=== PATIENT | female | born 1940 | race Two or more races ===

== ENCOUNTER 2016-10-19 06:10 | Observation (INO) | payer MEDICARE, OTHER ==
--- NOTE | ~2016-10-19 | HP ---
Unit #: [id number] #: [id number] Patient: MCKENZIE FAIR [id number] [address] [place], [place] [address] [id number] I MR#: [id number] NAME: MCKENZIE FAIR ROOM: 226 Age: 76 Sex: F Admission Date: 10/19/2016 : 1940 Attending Physician: Kole Mederos M.D. Primary Care Physician: Zeke Nelson M.D. HISTORY AND PHYSICAL CHIEF COMPLAINT Hypoglycemia. HISTORY OF PRESENT ILLNESS This is a 76-year-old Laotian female who basically has been admitted in the past for hypoglycemia again presents after family noted that she was acting kind of weird and she was subsequently brought to the hospital. She was noted to be behaving very different at about 3 a.m. in the morning. She has been in the hospital and workup so far in the hospital really was essentially within normal limits except for her hypoglycemia which she has been here for before and some mild renal insufficiency. Other than that, the patient was scheduled to be discharged when she again had another episode where she had another altered mental status and blood sugar was down to 36 per ER doctor. Hence, the decision was made to admit patient. Speaking with family, family members state that they gave her her insulin and insulin has been managed by Dr. Nelson. PAST MEDICAL HISTORY 1. Diabetes mellitus type 2, insulin dependent managed by Dr. Nelson. 2. Thyroid nodules. 3. Macrocytic anemia. 4. Peripheral neuropathy. HOME MEDICATIONS Include: 1. Hydroxyzine 25 mg p.o. q.i.d. 2. Aspirin 81 mg p.o. daily. 3. Lisinopril 5 mg p.o. daily. 4. Simvastatin 20 mg p.o. q.p.m. 5. Metformin 500 mg p.o. b.i.d. 6. Diclofenac 15 mg p.o. b.i.d. 7. Gabapentin 300 mg p.o. as directed. 8. Naproxen 220 mg p.o. as needed. ALLERGIES No known drug allergies. SOCIAL HISTORY Live with daughter and son. Her daughter is Renetta, who is next of kin. She chews tobacco. Denies alcohol use. FAMILY HISTORY Unit #: [id number] #: [id number] Patient: MCKENZIE FAIR History of diabetes. REVIEW OF SYSTEMS She denies any chest pain, headaches, difficulty breathing. States she is somewhat weak in her knees sometimes when she walks, she has been having pain in her knees as well. She does have an appointment to see Orthopedics on 10/22/2016. PHYSICAL EXAMINATION VITAL SIGNS: Blood pressure 141/66, pulse 70, respiratory rate 18, temperature 98.8. GENERAL: She was comfortable, not in distress. EYES: Pupils were equal and reactive to light and accommodation. NECK: Supple without thyromegaly. No elevated JVD. LUNGS: Breath sounds along the bases posteriorly. HEART: First and second heart sounds only. ABDOMEN: Soft. No palpable organomegaly. NEUROLOGIC: Cranial nerves II-XII are grossly intact. SKIN: Warm and dry with no rashes. LYMPHATICS: No enlarged peripheral lymphadenopathy that I could appreciate. DIAGNOSTIC STUDIES LABORATORY: Chemistries glucose 148, BUN 10, creatinine 0.9, sodium 139, potassium 4.0, chloride 105, bicarbonate 25. CBC with WBC 11.1, hemoglobin 10.2, hematocrit 33.1, platelet count 148. Urinalysis trace leukocyte esterase, glucose 250. ASSESSMENT AND PLAN 1. Hypoglycemia. I will stop metformin and discontinue Levemir at this time and put patient only on sliding scale insulin. Give patient D5 half normal saline 100 mL per hour. Check a CBC and BMP in the morning. Consult with Dr. Russell. 2. Diabetes mellitus type 2. 3. Hypertension. 4. Osteoarthritis of her knees. She has a scheduled follow up as an outpatient with Orthopedics and will defer to address this at this time with them. 5. DVT prophylaxis. Put her on Lovenox 40 mg subcu daily. 6. GI prophylaxis. Put her on Protonix 40 mg p.o. daily. 7. Anticipate discharge in the next one to two days. Dictated by Remedios Rosas TD: 10/19/2016 19:06 JOB #: [id number] Unit #: [id number] #: [id number] Patient: MCKENZIE FAIR HISTORY AND PHYSICAL Page 1 of 1 X Kole Mederos MD HISTORY AND PHYSICAL
--- NOTE | ~2016-10-19 | A ---
[facility] Nutrition Therapy DATE: 10/20/16 Patient: MCKENZIE OLIVASGRZEGORZJIN Physician: TERRENCE Address: [address] [place] [address] Room/Bed: [address] [place] [address], Zip: [place] [address] Admit Date: 10/19/16 Date of : 40 Height: Weight: 125 56.7 NUTRITIONAL ASSESSMENT: REASON: CONSULT RE: DIET EDUCATION HT: 5'0", WT: 120# (55 KG), BMI: 23.4 RD PROVIDED WRITTEN AND VERBAL CC DIET EDUCATION. FAMILY IN ROOM SERVED PAINTER AND GRADER CORK, DENIED NEEDING PAINTER AND GRADER CORK PHONE. RD SPOKE ON IMPORTANCE OF MAINTAINING A CONSISTENT MEAL PATTERN AND WATCH PORTIONS OF SPECFIC FOODS (STARCHES). SON OF PT STATES PT EATS A LOT OF RICE. RD ENCOURAGED PT TO CUT BACK ON RICE INTAKE AND PROVIDED EXAMPLES OF ALTERNATIVES. PT SHOWED MODERATE UNDERSTANDING OF DIET, MODERATE MOTIVATION TO MAKE NECESSARY CHANGES. PT AND FAMILY REPORTED NO DIET QUESTIONS AT THIS TIME. RD TO REMAIN AVAILABLE. RECOMMENDATIONS: 1. ENCOURAGE COMPLIANCE OF CURRENT DIET ORDER-CC RD WILL F/U PER PROTOCOL Respectfully, DARCY GOMEZ MS, RD, LD Food and Nutritional Services [facility] cc: client file
--- NOTE | ~2016-10-19 | CR72 ---
[facility] A Service of [facility] RADIOLOGY TEXT RESULTS PATIENT: MCKENZIE FAIR LOCATION: [facility] : 40 UNIT #: [id number] AGE: [address]: Harpreet Olvera MD SEX: F ORDER DR: [id number] [facility] [address] [facility]. [place], [place] [address] [id number] I MR#: [id number] Acc #: [id number] NAME: MCKENZIE FAIR : 1940 SEX: F STUDY DATE/TIME: UNIT: [facility] ROOM: [facility] STUDY DESCRIPTION: CR Chest Single View Portable Attending Physician: Harpreet Olvera M.D. Ordering Physician: Lake Castano M.D. Primary Care Physician: Primary Care Physician No MEDICAL IMAGING REPORT This report is preliminary unless electronic signature is present EXAM Portable chest 01/24/2017 09:30 hours HISTORY Chest pain with midsternal pain. Throat pain today. History of diabetes and hypertension. COMPARISON 10/19/2016 FINDINGS Portable upright chest demonstrates low lung volumes. Heart size is within normal limits. There is mild atherosclerotic change of the aorta without change in contour. The lungs are clear and there are no effusions. IMPRESSION Low lung volumes with no acute cardiopulmonary findings. No change from 10/19/2016. Dictated by... Gemini Rucker M.D. THIS IS AN ELECTRONICALLY VERIFIED REPORT Gemini Rucker M.D. at 01/25/2017 9:29 AM SMM/oralia TD: 01/24/2017 15:03 JOB #: [id number] MEDICAL IMAGING REPORT Page 1 of 1 COPY
--- NOTE | ~2016-10-19 | EKG ---
PATIENT: MCKENZIE FAIR UNIT #: [id number] Ventricular Rate: 73 BPM Atrial Rate: 73 BPM P-R Interval: 136 ms QRS Duration: 78 ms Q-T Interval: 412 ms QTC Calculation(Bezet): 453 ms P [place]: 66 degrees Calculated R [place]: 38 degrees Calculated T [place]: 40 degrees Diagnosis Line: Normal sinus rhythm Diagnosis Line: Normal ECG Diagnosis Line: When compared with ECG of 19-OCT-2016 05:43, Diagnosis Line: (unconfirmed) Diagnosis Line: No significant change was found Diagnosis Line: Confirmed by AMARJIT ROMERO MD ([id number]) on 10/19/2016 Diagnosis Line: 11:30:01 PM INTERPRETING MD: NICK SALGADO
--- NOTE | ~2016-10-19 | DS ---
Unit #: [id number] #: [id number] Patient: MCKENZIE FAIR [id number] [address] [place], [place] [address] [id number] I MR#: [id number] NAME: MCKENZIE FAIR ROOM: 226 Age: 76 Sex: F Admission Date: 10/19/2016 : 1940 Discharge Date: 10/20/2016 Attending Physician: Harpreet Olvera M.D. Primary Care Physician: No Primary Care Physician DISCHARGE SUMMARY DISCHARGE DIAGNOSES 1. Hypoglycemia secondary to Metformin and Levemir usage. 2. Type 2 diabetes. 3. Essential hypertension. 4. Dyslipidemia. EYEGLASS FRAME TRUER Dr. Russell of Endocrinology. DIAGNOSTIC STUDIES: IMAGING: Consists of a chest x-ray on 10/19/16. Impression-no active disease. LABORATORY: On the day of discharge, the patient's labs are a BMP: Glucose 142, BUN 13, creatinine 1.1, sodium 139, potassium 4.1, chloride 107, CO2 25, calcium 8.8, total protein 4.6, albumin 3.6, total bilirubin 0.4, AST 29, ALT 27, alkaline phosphatase 56. Lipase 30. When assessed, TSH was 0.79, free T4 0.98. CBC with WBC of 7.2, RBC 4.62, hemoglobin 10.1, hematocrit 32.7, MCV 70.9, MCH 21.9, MCHC 30.9, RDW 15.3, platelets 148, MPV 10.8. HOSPITAL COURSE The patient is a pleasant, 76-year-old, (1) speaking only female with past medical history of type 2 diabetes who was hospitalized back in December of 2014 with iatrogenic hypoglycemia. She does also have history of dyslipidemia, iron deficiency anemia, gastric ulcer disease, who was brought to the emergency department by her pkmgmced-qh-etp who lives with the patient for symptoms of palpitations, sweating and "acting funny". The patient's fspsoeqp-fu-hrv says that when assessed, reading was low. The patient's seivpyph-pe-zsj that this had happened one week ago as well. The patient gets Metformin at home, extended release 500 mg orally twice daily, as well as Levemir 20 units subcutaneous at bedtime. She had been getting this regimen for as long as the patient's byvqktxx-mr-foo had been living here which is for about a couple of months now. In the emergency department, her Accu-Chek was 30. She was treated with D5 and admitted for further evaluation. She was seen in consultation with Dr. Russell who thought that maybe the Metformin was causing her to be hypoglycemic. At this time, I am recommending that patient may be discharged home with her wjfmxuxn-lb-ijh, as she lives with her razbvgqj-is-zka and she does not work out of the home. I recommend that she stop the Metformin, reducing her Levemir to 10 units subcutaneously at bedtime. I have instructed her xsltysha-co-nyv to assess with an Accu-Chek prior to the admission of the Levemir. If it is less than 150, then this can be held. Unit #: [id number] #: [id number] Patient: MCKENZIE FAIR DISCHARGE CONDITION Stable. FOLLOWUP She is to follow up with primary care physician within one to two weeks. The patient had been complaining of ongoing right knee pain, which her trsmmieq-ea-vul has an outpatient orthopaedic followup appointment for her in two days on October. DISCHARGE DIET Heart Healthy with [employer] consistent carb recollections. ACTIVITIES No restrictions. The patient can resume activities as was prior to hospitalization with ambulating every day. MEDICINES 1. Gabapentin 100 mg every morning and 200 mg in the evening. 2. Simvastatin 20 mg every evening. 3. Lisinopril 5 mg orally daily. 4. Iron supplement 325 mg orally twice daily. 5. Aspirin 81 mg orally daily. 6. Diclofenac 50 mg orally twice daily. 7. Aleve 220 mg orally daily. 8. Hold the Metformin. 9. I have instructed the patient's zqdjfhvz-kh-wok to reduce the Levemir to 10 units subcutaneously at bedtime and hold if the blood sugar is less than 150. Dictated by... Krystina Thomas PA-C for Harpreet Olvera M.D. DAISY/li TD: 10/21/2016 07:20 JOB #: [id number] DISCHARGE SUMMARY Page 1 of 1 X X DISCHARGE SUMMARY
[~2016-10-19 06:10] MED LIST: ASPIRIN81 M2 PO; DICLOFENAC SODI50 MG PO; FERROUS GLUCON324 MG PO; GABAPENTIN300 MG PO; GLUCOPHAGE500 MG PO; LEVEMIR FL100 UNIT/1 SUBQ; LEVEMIR100 UNITS/ SUBQ; NO MEDICATIONS; PROTONIX PO; TYLENOL325 M1 PO; ZESTRIL2.5 M1 PO; ZOCOR20 MG PO
[2016-10-19 06:40] LABS: URINE SOURCE CLEAN CATCH
[2016-10-19 06:46] LABS: URINE APPEARANCE CLEAR; URINE BILIRUBIN NEG (NEG); URINE BLOOD NEG (NEG); URINE COLOR YELLOW; URINE GLUCOSE 250 MG/DL (NEG); URINE KETONE NEG (NEG); URINE LEUKOCYTE ESTERASE TRACE (NEG); URINE NITRATE NEG (NEG); URINE PH 5.5 (5-8); URINE PROTEIN NEG (NEG); URINE UROBILINOGEN 0.2 MG/DL (NEG)
[2016-10-19 06:46] LABS: BASOPHIL# 0.1 X10e3 (0-0.3); BASOPHIL% 0.7 % (0-2.5); EOSINOPHIL# 0.1 X10e3 (0-0.7); EOSINOPHIL% 0.7 % (0.0-7.0); HEMATOCRIT 33.1 % (35.0-45.0); HEMOGLOBIN 10.2 gm/dL (12.0-16.0); LYMPHOCYTE# 1.7 X10e3 (1.0-3.5); LYMPHOCYTE% 14.9 % (17.0-45.0); MEAN CELL VOLUME 70.8 FL (83-96); MEAN CORPUSCULAR HEMOGLOBIN 21.8 PG (28-34); MEAN CORPUSCULAR HGB CONC 30.8 g/dL (30-36); MONOCYTE# 0.8 X10e3 (0-1.0); NEUTROPHIL# 8.5 X10e3 (1.5-7.1); NEUTROPHIL% 76.7 % (40-75); PLATELET COUNT 148 X10e3 (140-420); RED BLOOD COUNT 4.68 X10e (3.90-5.30); RED CELL DISTRIBUTION WIDTH 15.5 % (11.0-15.5); WHITE BLOOD COUNT 11.1 X10e3 (4.0-10.5)
[2016-10-19 06:49] LABS: URBCS1 AUWI 0-2 /[HPF] (0-2); URINE BACTERIA AUWI NEG (NEGATIVE); URINE SQUAMOUS EPITHELIAL CELL OCC /[HPF]
[2016-10-19 06:51] LABS: CULTURE INDICATED? NO
[2016-10-19 06:53] LABS: DIFF IND NO
[2016-10-19 07:27] LABS: ALBUMIN SERUM 3.6 g/dL (3.5-5.0); ALKALINE PHOSPHATASE 56 U/L (32-92); ALT (SGPT) 27 U/L (10-40); AST (SGOT) 29 U/L (10-42); BILIRUBIN,TOTAL 0.4 mg/dL (0.2-2.0); BLOOD UREA NITROGEN 10 mg/dL (9-23); BUN/CREATININE RATIO 11.11; CALCIUM SERUM 8.9 mg/dL (8.4-10.2); CARBON DIOXIDE 25 mmol/L (22-31); CHLORIDE 105 mmol/L (100-111); CREATININE SERUM 0.9 mg/dL (0.6-1.4); GLOM FILT RATE Estimated 62.2 mL/min (>60); GLUCOSE FASTING 148 mg/dL (70-110); PROTEIN TOTAL SERUM 7.6 g/dL (6.0-8.3); SODIUM 139 mmol/L (135-145)
[2016-10-19 07:28] LABS: BILIRUBIN, DIRECT <0.1 mg/dL (0.0-0.2); BILIRUBIN,INDIRECT 0.3 mg/dL (0.0-0.9)
[2016-10-19] MEDS ORDERED: ASPIRIN EC81 M1 PO (12:20)
[2016-10-19] MEDS ORDERED: LISINOPRIL5 MG PO (12:20)
[2016-10-19] MEDS ORDERED: HYDROXYZINE HCL25 M1 PO (12:20)
[2016-10-19] MEDS ORDERED: SIMVASTATIN20 MG PO (12:21)
[2016-10-19] MEDS ORDERED: METFORMIN HCL500 M3 PO (12:22)
[2016-10-19] MEDS ORDERED: VOLTAREN50 MG PO (12:27)
[2016-10-19] MEDS ORDERED: HEMOCYTE324 MG PO (12:29)
[2016-10-19] MEDS ORDERED: GABAPENTIN300 MG PO (12:29)
[2016-10-19] MEDS ORDERED: ALEVE220 M1 PO (12:30)
[2016-10-20 06:43] LABS: HEMATOCRIT 32.7 % (35.0-45.0); HEMOGLOBIN 10.1 gm/dL (12.0-16.0); MEAN CELL VOLUME 70.9 FL (83-96); MEAN CORPUSCULAR HEMOGLOBIN 21.9 PG (28-34); MEAN CORPUSCULAR HGB CONC 30.9 g/dL (30-36); MEAN PLATELET VOLUME 10.8 FL (6.5-11.5); RED BLOOD COUNT 4.62 X10e (3.90-5.30); RED CELL DISTRIBUTION WIDTH 15.3 % (11.0-15.5); WHITE BLOOD COUNT 7.2 X10e3 (4.0-10.5)
[2016-10-20 07:15] LABS: THYROID STIMULATING HORMONE 0.79 uIU/ml (0.34-5.60)
[2016-10-20 07:22] LABS: BUN/CREATININE RATIO 11.81; CALCIUM SERUM 8.8 mg/dL (8.4-10.2); CREATININE SERUM 1.1 mg/dL (0.6-1.4); FREE THYROXIN (T4) 0.98 ng/dL (0.58-1.64); GLOM FILT RATE Estimated 48.7 mL/min (>60); POTASSIUM 4.1 mmol/L (3.5-5.1)
[2016-10-20] MEDS ORDERED: LEVEMIR100 UNITS/ SUBQ (12:57)
== END 2016-10-20 14:01 | disposition home or self-care (01) ==
LOC: CED 06:10 → CEDOF 11:20 → C2A 13:40
PROVIDERS: Emergency Medicine; Family Medicine
DX: E11.649 Type 2 diabetes mellitus with hypoglycemia without coma (principal); T38.3X5A Adverse effect of insulin and oral hypoglycemic [antidiabetic] drugs, initial encounter; Z79.4 Long term (current) use of insulin; Z79.84 Long term (current) use of oral hypoglycemic drugs; I10 Essential (primary) hypertension; E78.5 Hyperlipidemia, unspecified; M17.0 Bilateral primary osteoarthritis of knee; F17.220 Nicotine dependence, chewing tobacco, uncomplicated; Z83.3 Family history of diabetes mellitus; Z79.82 Long term (current) use of aspirin
CPT/HCPCS: 36415; 71010; 80048; 80076; 81003; 82947; 83036; 84439; 84443; 85025; 85027; 93005; 96372; 96374; 99285; G0378; J1650

== ENCOUNTER 2017-01-24 08:41 | Observation (INO) | payer MEDICARE, OTHER ==
--- NOTE | ~2017-01-24 | CT114 ---
[facility] A Service of [facility] RADIOLOGY TEXT RESULTS PATIENT: MCKENZIE FAIR LOCATION: [facility] 315- : 40 UNIT #: [id number] AGE: [address]: Carrillo Giraldo MD SEX: F ORDER DR: [id number] [facility] [address] [facility]. [place], [place] [address] [id number] I MR#: [id number] Acc #: [id number] NAME: MCKENZIE FAIR : 1940 SEX: F STUDY DATE/TIME: 01/24/2017 11:40 UNIT: [address] ROOM: [facility] STUDY DESCRIPTION: CT Soft Tissue Neck W Cont Attending Physician: Carrillo Giraldo M.D. Ordering Physician: Er Physicians Primary Care Physician: No Primary Care Physician MEDICAL IMAGING REPORT This report is preliminary unless electronic signature is present EXAM CT neck soft tissues with contrast INDICATIONS Sore throat for the past 2 years with right-sided neck mass for the past 2 years. PROCEDURE Contrast-enhanced CT of the neck utilizing soft tissue technique. This CT exam was performed with one or more of the following radiation dose reduction techniques: automatic exposure control, adjustment of mA and/or kV according to patient size, and iterative reconstruction. COMPARISON Thyroid ultrasound from 11/01/2014 FINDINGS Thyroid gland is diffusely enlarged, right greater than left. Multinodular appearance of the right thyroid lobe. A dominant nodule on the right measures up to 2.9 cm. A second heterogeneously enhancing nodule in the lower pole of the right lobe measures up to 3.1 cm. There is diffuse heterogeneity of the left lobe, but no discrete nodule seen. The right lobe does have right to left mass effect on the trachea and esophagus. The trachea remains patent. No cervical adenopathy. There is a 6 mm nodule in the right parotid gland probably a lymph node, but indeterminate. Left parotid glands and submandibular glands have an unremarkable appearance. Major vascular structures are intact. No aggressive appearing bone lesion. IMPRESSION 1. Diffusely enlarged and heterogeneous thyroid gland, right greater than [facility] A Service of [facility] RADIOLOGY TEXT RESULTS PATIENT: MCKENZIE FAIR LOCATION: [facility] 315-01 : 40 UNIT #: [id number] AGE: [address]: Carrillo Giraldo MD SEX: F ORDER DR: left with multiple nodules on the right. Largest 2 nodules are described above. These appear to be very similar in size to the 11/01/2014 ultrasound. 2. 6 mm nodule in the right parotid gland is favored to represent a lymph node but is indeterminate on this study. 3. The enlarged right thyroid lobe does have some mass effect on the trachea but it remains patent. Dictated by... Hussain Mix M.D. THIS IS AN ELECTRONICALLY VERIFIED REPORT Hussain Mix M.D. at 01/25/2017 7:12 AM Chris TD: 01/24/2017 18:18 JOB #: [id number] MEDICAL IMAGING REPORT Page 1 of 1 COPY
--- NOTE | ~2017-01-24 | EKG ---
PATIENT: MCKENZIE FAIR UNIT #: [id number] Ventricular Rate: 75 BPM Atrial Rate: 75 BPM P-R Interval: 158 ms QRS Duration: 88 ms Q-T Interval: 386 ms QTC Calculation(Bezet): 431 ms P [place]: 66 degrees Calculated R [place]: 53 degrees Calculated T [place]: 58 degrees Diagnosis Line: Normal sinus rhythm Diagnosis Line: Normal ECG Diagnosis Line: When compared with ECG of 19-OCT-2016 05:44, Diagnosis Line: No significant change was found Diagnosis Line: Confirmed by ERICKA SMALL MD ([id number]) on Diagnosis Line: 01/25/2017 11:09:41 AM INTERPRETING MD: GEOVANNY SALGADO
--- NOTE | ~2017-01-24 | MR18 ---
[facility] A Service of [facility] RADIOLOGY TEXT RESULTS PATIENT: MCKENZIE FAIR LOCATION: [facility] 315- : 40 UNIT #: [id number] AGE: [address]: Skyla Armenta MD SEX: F ORDER DR: [id number] [facility] [address] [facility]. [place], [place] [address] [id number] I MR#: [id number] Acc #: [id number] NAME: MCKENZIE FAIR : 1940 SEX: F STUDY DATE/TIME: 01/24/2017 19:41 UNIT: [address] ROOM: [facility] STUDY DESCRIPTION: MR Brain Wo Contrast Attending Physician: Skyla Armenta M.D. Ordering Physician: Carrillo Giraldo M.D. Primary Care Physician: No Primary Care Physician MRI CENTER REPORT This report is preliminary unless electronic signature is present. EXAM MRI brain. INDICATIONS Syncope. Fall 2 days ago. Dizziness and blurred vision. TECHNIQUE Multiplanar MRI of the brain without contrast. COMPARISON MRI of the brain 12/23/2014. FINDINGS The midline structures and craniocervical junction within normal limits. There is no acute intracranial ischemia. There is generalized atrophy and chronic small vessel changes. No intracranial hemorrhage. There is generalized atrophy of the caudate suggesting prior ischemic insult. This is a new finding from the prior study. 2 small punctate areas of blooming artifact are unchanged from the patient's prior study. IMPRESSION 1. No acute findings. No evidence of acute intracranial ischemia. 2. Generalized atrophy in the caudate suggests prior ischemic insult. No acute ischemia is identified. Dictated by... Maximilian Huerta M.D. THIS IS AN ELECTRONICALLY VERIFIED REPORT Maximilian Huerta M.D. at 01/25/2017 3:08 PM RPC/li TD: 01/25/2017 11:58 [facility] A Service of [facility] RADIOLOGY TEXT RESULTS PATIENT: MCKENZIE FAIR LOCATION: [facility] 315-01 : 40 UNIT #: [id number] AGE: [address]: Skyla Armenta MD SEX: F ORDER DR: JOB #: [id number] MRI CENTER REPORT Page 1 of 1 COPY
--- NOTE | ~2017-01-24 | EKG ---
PATIENT: MCKENZIE FAIR UNIT #: [id number] Ventricular Rate: 71 BPM Atrial Rate: 71 BPM P-R Interval: 164 ms QRS Duration: 90 ms Q-T Interval: 394 ms QTC Calculation(Bezet): 428 ms P [place]: 61 degrees Calculated R [place]: 50 degrees Calculated T [place]: 50 degrees Diagnosis Line: Normal sinus rhythm Diagnosis Line: Normal ECG Diagnosis Line: When compared with ECG of 24-JAN-2017 09:25, Diagnosis Line: (unconfirmed) Diagnosis Line: No significant change was found Diagnosis Line: Confirmed by ALICE ROCHE MD ([id number]) on Diagnosis Line: 01/25/2017 4:23:19 PM INTERPRETING MD: REGINALD
--- NOTE | ~2017-01-24 | DS ---
Unit #: [id number] #: [id number] Patient: MCKENZIE FAIR [id number] [address] [place], [place] [address] [id number] I MR#: [id number] NAME: MCKENZIE FAIR ROOM: [facility] Age: 76 Sex: F Admission Date: 01/24/2017 : 1940 Discharge Date: 01/25/2017 Attending Physician: Skyla Armenta M.D. Primary Care Physician: No Primary Care Physician DISCHARGE SUMMARY PRIMARY CARE PROVIDER Dr. Nelson. PRINCIPAL DIAGNOSES 1. Syncope of unknown etiology. 2. Diabetes mellitus type 2, insulin requiring and uncontrolled. 3. Multinodular goiter. 4. Cervical/neck pain, likely neuropathic in origin. 5. Iron-deficiency anemia with discharge hemoglobin of 9.7. 6. Diabetic peripheral neuropathy. 7. Moderate protein malnutrition. 8. Moderate mitral regurgitation. SCHEDULE HANGER None. PROCEDURES 1. A two-dimensional echocardiogram on January 24, 2017 with ejection fraction of 55%, mild concentric left ventricular hypertrophy noted, zyot-de-ytbbqlaj mitral regurgitation noted, mild tricuspid regurgitation, mild pulmonic valve regurgitation. 2. MRI of the brain without contrast on January 25, 2017, which was negative for any acute findings. A sequela of small vessel disease noted. 3. MRA of head and neck revealed moderate atherosclerosis of the intracranial portion of the carotid arteries. 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 4. CT of the soft tissue of the neck with contrast on January 24, 2017, with an enlarged and heterogeneous thyroid gland, right greater than left, with multiple nodules on the right. This is stable since 2015. A 6 mm nodule on the right parotid gland consistent with lymph node. CLINICAL HISTORY AND HOSPITAL COURSE Ms. Fair is a 76-year-old female from [place] (who speaks [place]), who presents to the emergency department after an episode of syncope several days prior. Patient was coming in from being outside, felt dizzy, put her head on the floor and subsequently passed out. The patient's daughter checked her blood pressure and her blood sugar both of which were stable. EMS arrived and readings were similar. Patient initially refused to come in; however, ultimately she agreed to evaluation by her family and was brought to the emergency department. She is complaining only of neck pain. Imaging in the emergency department was unremarkable and she was subsequently admitted. Unit #: [id number] #: [id number] Patient: MCKENZIE FAIR The patient has had no episodes of syncope and/or dizziness during hospitalization. Telemetry has revealed only normal sinus rhythm and 2D echo is as previously noted. MRI of the brain and MRA of head and neck were as noted. The focal stenosis of right WIRE WELDER should not contribute to syncope. This can be followed up as an outpatient. She also underwent CT scan of her thyroid nodule but this is not causing any airway compromise. I am uncertain the source of her syncope. Perhaps, it was simply warm outside and she became dizzy. I think this can be followed up closely by Dr. Nelson. The patient's other chronic conditions all remain stable. I will note that her glucose was elevated upon presentation at 278. This can be, again, monitored closely by Dr. Nelson. The patient is complaining of a lot of neck pain but unfortunately, she is not really able to describe it for me. She did mention at one point it is like a burning sensation and perhaps she has some neuropathic pain. While this is not contributing to her syncope in my personal opinion, I will place her on a low dose of Neurontin and will see if this helps her symptoms. DISCHARGE CONDITION Stable. DISCHARGE STATUS Discharge to home. DISCHARGE MEDICATIONS 1. I am going to discontinue her metformin. 2. Hydroxyzine 25 mg p.o. three or four times daily p.r.n. for itching. 3. Zocor 20 mg at bedtime. 4. Lisinopril 5 mg daily. 5. Humalog 10 units subcutaneous t.i.d. with meals. 6. Ferrous gluconate 324 mg daily. 7. Aspirin 81 mg daily. 8. Diclofenac 50 mg b.i.d. 9. Neurontin 100 mg p.o. nightly. I will note on review of discharge summary in October, she was on an increased dose of Neurontin. I am going to lower it a bit and again this can be followed up by Dr. Nelson. DISCHARGE INSTRUCTIONS 1. The patient was instructed to follow a heart healthy, constant carb diet. 2. She should continue Accu-Cheks a.c. and at bedtime at home. 3. She can increase her activity as tolerated. FOLLOWUP The patient will follow up with Dr. Nelson in one week. Time spent on discharge, 43 minutes. Dictated by... Skyla Armenta M.D. MICHELE/vickie Unit #: [id number] #: [id number] Patient: MCKENZIE FAIR TD: 01/25/2017 17:53 JOB #: [id number] DISCHARGE SUMMARY Page 1 of 1 X Skyla Armenta MD X DISCHARGE SUMMARY
--- NOTE | ~2017-01-24 | HP ---
Unit #: [id number] #: [id number] Patient: MCKENZIE FAIR [id number] [address] [place], [place] [address] [id number] E MR#: [id number] NAME: MCKENZIE FAIR ROOM: Age: 76 Sex: F Admission Date: 01/24/2017 : 1940 Attending Physician: Natalee Lewis Pa-C Primary Care Physician: No Primary Care Physician HISTORY AND PHYSICAL REASON FOR ADMISSION Syncopal episode at home. HISTORY OF PRESENT ILLNESS The patient is a very pleasant 76-year-old female, originally from [place]. She speaks very little [place], and spanish tutor is not available to me at the present time and the patient's daughter has already left. Therefore, I have elicited much of this after ER reports, as well as discussion with the patient. She tells me that she has off and on had 3-day history of throat and/or neck pain. She had a prior history of a goiter of the thyroid that had recently increased in size, and she was supposed to go to follow up with her doctor for routine care and possible outpatient surgical evaluation, but off and on the patient has had noncompliance issues. In regard to her diabetes, she is normally followed by Dr. Russell of endocrinology service. She tells me, and also per reports, approximately 3 days ago she had a syncopal episode where she had an associated headache and began developing some neck pain and passed out subsequently. At that point in time the patient's daughter wished to bring the patient in for evaluation, but she refused. We are asked to admit the patient secondary to syncopal episode, as well as evaluation in regard to the thyroid mass. PAST MEDICAL HISTORY 1. Type 2 diabetes, insulin dependent. 2. Prior history of multinodular goiter. 3. Anemia. 4. Peripheral neuropathy, likely secondary to poorly controlled diabetes. PAST SURGICAL HISTORY None. HOME MEDICATIONS From previous discharge summary dictated in October of 2016 I see gabapentin, simvastatin, lisinopril, iron, aspirin, diclofenac, Aleve. SOCIAL HISTORY The patient apparently resides at home with her daughter. No alcohol. No illicit drug use. Positive tobacco use, 1 pack per day. FAMILY HISTORY Reviewed and noncontributory, not pertinent. Unit #: [id number] #: [id number] Patient: MCKENZIE FAIR REVIEW OF SYSTEMS Please see HPI. A 12-point review was, otherwise, negative except for those positively noted in the HPI. Limited secondary to language barrier, as well as lack of family members. PHYSICAL EXAMINATION VITAL SIGNS: Temperature 97.6, pulse 86, respiratory rate 16, blood pressure 131/82. GENERAL APPEARANCE: A 76-year-old female sitting up comfortably in no acute distress. HEAD EXAM: Atraumatic, normocephalic. EAR EXAM: Tympanic membranes do not reveal any erythema or injection. NECK: Exam reveals trachea midline with large mass noted over the right anterior portion of the neck, nontender to palpation. Appears to be very nodular on palpation. There is no carotid bruit heard. NO accessory muscle use noted. CVS EXAM: S1, S2 were audible without murmur. RESPIRATORY EXAM: Clear bilaterally. GI/ABDOMEN: Nontender, nondistended. LOWER EXTREMITY EXAM: Lower extremities have no evidence of lower extremity edema. No calf tenderness. NEUROLOGIC: The patient is alert and oriented x3. She does answer appropriately when asked about time, place and person. DIAGNOSTIC STUDIES INITIAL LABORATORY STUDIES: TSH normal. CMP shows GFR 54, blood glucose of 278. CBC - Hemoglobin 10.5. Initial cardiac enzymes set negative. INITIAL IMPRESSION 1. Syncopal episode. 2. Thyroid mass. 3. Prior history of multinodular goiter. 4. Diabetes type 2. 5. Hypothyroidism. 6. Hypertension. 7. Depression history per chart. PLAN Admission telemetry floor. MRI brain with and without contrast. Ultrasound carotids. Routine laboratory studies. Accu-Cheks. Hold home medications for now. Thyroid mass likely can be worked up as an outpatient, as the patient has no respiratory compromise. Her trachea appears to be midline, and she has had no breathing difficulties. This evaluation may be conducted as an outpatient and/or consideration for possible thyroidectomy; either total or partial may be conducted when the patient is discharged from the hospital, but aforementioned premise for hospital admission will be syncope. Once that is effectively worked up, the patient may be discharged home with appropriate outpatient followup. Plans have been reviewed with the patient. She expresses understanding and agreements. Please see order sheet for details. Dictated by Carrillo Giraldo M.D. Unit #: [id number] #: [id number] Patient: MCKENZIE FAIR PARISH/mildred TD: 01/24/2017 14:43 JOB #: [id number] HISTORY AND PHYSICAL Page 1 of 1 X Carrillo Giraldo MD X HISTORY AND PHYSICAL
--- NOTE | ~2017-01-24 | MR122 ---
[facility] A Service of [facility] RADIOLOGY TEXT RESULTS PATIENT: MCKENZIE FAIR LOCATION: [facility] : 40 UNIT #: [id number] AGE: [address]: Skyla Armenta MD SEX: F ORDER DR: [id number] [id number] [facility]. [place], [place] [address] [id number] I MR#: [id number] Acc #: [id number] NAME: MCKENZIE FAIR : 1940 SEX: F STUDY DATE/TIME: 01/24/2017 20:09 UNIT: [address] ROOM: [address] [place] [address] DESCRIPTION: MR MRA Head Wo Contrast Attending Physician: Skyla Armenta M.D. Ordering Physician: Carrillo Giraldo M.D. Primary Care Physician: No Primary Care Physician MRI CENTER REPORT This report is preliminary unless electronic signature is present. EXAM MRA head INDICATIONS Syncope. Blurred vision. Dizziness. TECHNIQUE 3-D MRA of the head without contrast. COMPARISON None available. FINDINGS There is moderate atherosclerotic disease of the intracranial internal carotid arteries. The vessels remain patent. The anterior cerebral arteries and middle cerebral arteries are patent. No evidence of significant stenosis or thrombosis. No aneurysm. Both posterior communicating arteries are patent. There is persistent origin of the left posterior cerebral artery. The vertebrobasilar system is within normal limits. There is a focal stenosis of the proximal right posterior cerebral artery approximately 1.5 cm from the origin. No aneurysm or thrombosis. IMPRESSION 1. 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 2. Focal stenosis involving the proximal right posterior cerebral artery. 3. No thrombosis or aneurysm. Dictated by... Maximilian Huerta M.D. [facility] A [facility] RADIOLOGY TEXT RESULTS PATIENT: MCKENZIE FAIR LOCATION: [facility] : 40 UNIT #: [id number] AGE: [address]: Skyla Armenta MD SEX: F ORDER DR: THIS IS AN ELECTRONICALLY VERIFIED REPORT Maximilian Huerta M.D. at 01/25/2017 3:08 PM ANGELIA/norma TD: 01/25/2017 12:09 JOB #: [id number] MRI CENTER REPORT Page 1 of 1 COPY
--- NOTE | ~2017-01-24 | MR134 ---
[facility] A Service of [facility] RADIOLOGY TEXT RESULTS PATIENT: MCKENZIE FAIR LOCATION: [facility] : 40 UNIT #: [id number] AGE: [address]: Skyla Armenta MD SEX: F ORDER DR: [id number] [facility] [address] [facility]. [place], [place] [address] [id number] I MR#: [id number] Acc #: [id number] NAME: MCKENZIE FAIR : 1940 SEX: F STUDY DATE/TIME: 01/24/2017 20:17 UNIT: [address] ROOM: [facility] STUDY DESCRIPTION: MR MRA Neck Wo Contrast Attending Physician: Skyla Armenta M.D. Ordering Physician: Carrillo Giraldo M.D. Primary Care Physician: No Primary Care Physician MRI CENTER REPORT This report is preliminary unless electronic signature is present. EXAM MR neck. INDICATION Syncope. Vision changes. Blurred vision. Dizzy spells. TECHNIQUE 2-D [id number] MRA of the neck without contrast. Evaluation for significant stenosis is based upon the NASCET criteria. COMPARISON MRA head obtained the same day. FINDINGS There is a three-vessel aortic arch. There is mild atherosclerotic disease at the carotid bifurcations, however, there is no evidence of a significant stenosis. The vertebral arteries are patent antegrade flow. There is abnormal signal associated with a large exophytic right thyroid nodule. Please refer to the CT neck obtained the same day for details. IMPRESSION Negative MRA of the neck. Mild atherosclerotic disease, however, no significant stenosis. Dictated by... Maximilian Huerta M.D. THIS IS AN ELECTRONICALLY VERIFIED REPORT Maximilian Huerta M.D. at 01/25/2017 3:08 PM ANGELIA/clem [facility] A Service of [facility] RADIOLOGY TEXT RESULTS PATIENT: MCKENZIE FAIR LOCATION: [facility] 315 : 40 UNIT #: [id number] AGE: [address]: Skyla Armenta MD SEX: F ORDER DR: TD: 01/25/2017 12:04 JOB #: [id number] MRI CENTER REPORT Page 1 of 1 COPY
[~2017-01-24 08:41] MED LIST changes: +ALEVE220 M1 PO; +ASPIRIN EC81 M1 PO; +HEMOCYTE324 MG PO; +HYDROXYZINE HCL25 M1 PO; +LISINOPRIL5 MG PO; +METFORMIN HCL500 M3 PO; +SIMVASTATIN20 MG PO; +VOLTAREN50 MG PO
[2017-01-24 10:06] LABS: POC - TROPONIN <0.05 ng/mL (<=0.05)
[2017-01-24 10:06] LABS: BASOPHIL% 0.6 % (0-2.5); EOSINOPHIL# 0.1 X10e3 (0-0.7); EOSINOPHIL% 1.7 % (0.0-7.0); HEMATOCRIT 33.5 % (35.0-45.0); HEMOGLOBIN 10.5 gm/dL (12.0-16.0); LYMPHOCYTE% 25.1 % (17.0-45.0); MEAN CORPUSCULAR HGB CONC 31.5 g/dL (30-36); MEAN PLATELET VOLUME 11.3 FL (6.5-11.5); MONOCYTE# 0.6 X10e3 (0-1.0); MONOCYTE% 7.1 % (3.0-12.0); NEUTROPHIL# 5.1 X10e3 (1.5-7.1); NEUTROPHIL% 65.5 % (40-75); PLATELET COUNT 151 X10e3 (140-420); RED BLOOD COUNT 4.79 X10e (3.90-5.30); RED CELL DISTRIBUTION WIDTH 15.3 % (11.0-15.5); WHITE BLOOD COUNT 7.9 X10e3 (4.0-10.5)
[2017-01-24 10:10] LABS: DIFF IND NO
[2017-01-24 10:37] LABS: ALBUMIN SERUM 3.3 g/dL (3.5-5.0); BILIRUBIN,TOTAL 0.3 mg/dL (0.2-2.0); CALCIUM SERUM 8.8 mg/dL (8.4-10.2); GLOM FILT RATE Estimated 54.7 mL/min (>60); POTASSIUM 3.7 mmol/L (3.5-5.1); PROTEIN TOTAL SERUM 6.8 g/dL (6.0-8.3)
[2017-01-24] MEDS ORDERED: LISINOPRIL PO (14:30)
[2017-01-24] MEDS ORDERED: PATIENT'S PHARMACY (14:30)
[2017-01-24] MEDS ORDERED: ZOCOR PO (14:30)
[2017-01-24] MEDS ORDERED: FERROUS GLUCON324 M1 PO (14:31)
[2017-01-24] MEDS ORDERED: HYDROXYZINE HCL25 M1 PO (14:31)
[2017-01-24] MEDS ORDERED: ASPIRIN81 M2 PO (14:31)
[2017-01-24] MEDS ORDERED: VOLTAREN50 MG PO (14:31)
[2017-01-24] MEDS ORDERED: METFORMIN PO (14:31)
[2017-01-24] MEDS ORDERED: HUMALOG100 UNIT/1 SUBQ (14:33)
[2017-01-24 16:30] LABS: AMPHETAMINE NEG (NEG); BARBITURATES NEG (NEG); BENZODIAZEPINES NEG (NEG); COCAINE NEG (NEG); MARIJUANA NEG (NEG); OPIATES POS (NEG); TRICYCLIC ANTIDEPRESSANTS NEG (NEG); U METHADONE NEG (NEG)
[2017-01-24 19:05] LABS: %MB 2.6 % (0.0-4.0); MB 2.2 ng/ml
[2017-01-25 06:47] LABS: HEMATOCRIT 30.9 % (35.0-45.0); HEMOGLOBIN 9.7 gm/dL (12.0-16.0); MEAN CELL VOLUME 70.2 FL (83-96); MEAN CORPUSCULAR HGB CONC 31.3 g/dL (30-36); MEAN PLATELET VOLUME 11.3 FL (6.5-11.5); RED BLOOD COUNT 4.4 X10e (3.90-5.30); RED CELL DISTRIBUTION WIDTH 15.5 % (11.0-15.5)
[2017-01-25 07:14] LABS: ALBUMIN SERUM 2.9 g/dL (3.5-5.0); BILIRUBIN,TOTAL 0.4 mg/dL (0.2-2.0); CALCIUM SERUM 8.4 mg/dL (8.4-10.2); GLOM FILT RATE Estimated 54.7 mL/min (>60); POTASSIUM 3.6 mmol/L (3.5-5.1); PROTEIN TOTAL SERUM 5.9 g/dL (6.0-8.3)
[2017-01-25 13:14] LABS: %MB 2.4 % (0.0-4.0); MB 1.9 ng/ml
[2017-01-25] MEDS ORDERED: NEURONTIN100 MG PO (17:10)
== END 2017-01-25 18:27 | disposition home or self-care (01) ==
LOC: CED 08:41 → CEDOF 14:20 → CED 14:20 → C3A PCU 14:20 → CEDOF 14:20 → CED 15:42 → C3A PCU 17:11 → CEDOF 17:11 → C3A PCU 01-25 07:32
PROVIDERS: Family Medicine; Physician Assistant
DX: R55 Syncope and collapse (principal); I51.7 Cardiomegaly; I08.1 Rheumatic disorders of both mitral and tricuspid valves; I37.1 Nonrheumatic pulmonary valve insufficiency; E04.2 Nontoxic multinodular goiter; D11.0 Benign neoplasm of parotid gland; G31.9 Degenerative disease of nervous system, unspecified; I65.29 Occlusion and stenosis of unspecified carotid artery; I66.9 Occlusion and stenosis of unspecified cerebral artery; E11.9 Type 2 diabetes mellitus without complications; Z79.4 Long term (current) use of insulin; M54.2 Cervicalgia; D50.9 Iron deficiency anemia, unspecified; E46 Unspecified protein-calorie malnutrition; E03.9 Hypothyroidism, unspecified; G62.9 Polyneuropathy, unspecified
CPT/HCPCS: 36415; 70491; 70544; 70547; 70551; 71010; 80053; 80307; 82550; 82553; 82607; 82947; 83036; 84439; 84443; 84484; 85025; 85027; 87086; 93005; 93306; 96361; 96374; 96375; 99285; G0378; J1815; J2060; J2270; J2405; Q9967

== ENCOUNTER → 2017-01-31 | Outpatient (CLI) | payer MEDICARE, OTHER ==
[~2017-01-31] MED LIST changes: +FERROUS GLUCON324 M1 PO; +HUMALOG100 UNIT/1 SUBQ; +LISINOPRIL PO; +METFORMIN PO; +NEURONTIN100 MG PO; +PATIENT'S PHARMACY; +ZOCOR PO
--- NOTE | ~2017-01-31 | US116 ---
[facility] A Service of [facility] RADIOLOGY TEXT RESULTS PATIENT: MCKENZIE FAIR LOCATION: [facility] : 40 UNIT #: [id number] AGE: [address]: Zeke Nelson MD SEX: F ORDER DR: [id number] [facility] [address] [facility]. [place], [place] [address] [id number] O MR#: [id number] Acc #: [id number] NAME: MCKENZIE FAIR : 1940 SEX: F STUDY DATE/TIME: 01/31/2017 10:17 UNIT: [facility] ROOM: STUDY DESCRIPTION: US Soft Tissue Head/Neck Attending Physician: Zeke Nelson M.D. Referring Physician: Zeke Nelson M.D. Ordering Physician: Zeke Nelson M.D. Primary Care Physician: Zeke Nelson M.D. MEDICAL IMAGING REPORT This report is preliminary unless electronic signature is present EXAM Ultrasound of the neck soft tissue on patient INDICATION Swelling and lump in the neck for less than a week. This patient underwent a CT of the neck soft tissue which demonstrated an exophytic mass arising from the superior pole of the right lobe of the thyroid gland with an additional nodule seen inferior to this. This has been previously evaluated with dedicated thyroid ultrasound. TECHNIQUE Cantrell-scale and color Doppler sonographic images were obtained through the area of concern. Within the area concern there is a mixed solid and cystic mass. This corresponds likely to the exophytic structure arising from the superior pole of the right lobe of the thyroid gland and can also be seen on the thyroid ultrasound. No abnormalities are seen in the left. IMPRESSION Within the area concern there is a mixed solid and cystic nodule which corresponds to the lesion arising from the superior pole of the right lobe of the thyroid gland seen on recent CT of the neck soft tissue with contrast as well as on today's dedicated thyroid ultrasound. Further evaluation with FNA is recommended. Dictated by... Ericka Beauchamp M.D. THIS IS AN ELECTRONICALLY VERIFIED REPORT Ericka Beauchamp M.D. at 02/08/2017 4:32 PM AFF/jw TD: 02/01/2017 09:28 [facility] A Service of [facility] RADIOLOGY TEXT RESULTS PATIENT: MCKENZIE FAIR LOCATION: [facility] : 40 UNIT #: [id number] AGE: [address]: Zeke Nelson MD SEX: F ORDER DR: JOB #: [id number] MEDICAL IMAGING REPORT Page 1 of 1 COPY
--- NOTE | ~2017-01-31 | US128 ---
[id number] [facility] [address] [facility]. [place], [place] [address] [id number] O MR#: [id number] Acc #: [id number] NAME: MCKENZIE FAIR : 1940 SEX: F STUDY DATE/TIME: 01/31/2017 10:27 UNIT: [facility] ROOM: STUDY DESCRIPTION: US Thyroid Attending Physician: Zeke Nelson M.D. Referring Physician: Zeke Nelson M.D. Ordering Physician: Zeke Nelson M.D. Primary Care Physician: Zeke Nelson M.D. MEDICAL IMAGING REPORT This report is preliminary unless electronic signature is present EXAM Thyroid ultrasound INDICATION Abnormal CT of the neck soft tissue with contrast which showed a large exophytic structure arising from the superior pole. Arising from the superior pole of the right lobe of the thyroid gland as well as a second nodule seen within the mid portion of the right lobe of the thyroid gland. TECHNIQUE Cantrell-scale color Doppler sonographic images were obtained through the thyroid gland. FINDINGS The thyroid gland is enlarged. Right lobe measures 3.2 x 7.2 x 2.7 cm. Left lobe measures 2.5 x 5.8 x 1.8 cm. Isthmus measures about 9.0 mm in thickness. Within the superior pole of the right lobe of the thyroid gland there is a mixed solid and cystic mass which measures up to 4.1 x 3.9 x 3.0 cm. This was also present in October 2014. I do think it is larger than on that examination and this was discussed on the prior exam from October 2014. This does meet size criteria for percutaneous sampling and this is recommended if not previously performed. A second nodule is seen inferior to it which measures 3.4 x 2.8 x 1.7 cm. This actually probably has not significantly changed when compared to the prior CT from October 2014 which would certainly be more suggestive of a benign process but again, this does meet size criteria for biopsy. Mixed solid and cystic nodule is seen within the left lobe of the thyroid gland measuring 6.0 x 6.0 x 6.0 mm in size. This actually was present on the prior study from October 2014 and is probably not significantly changed. Within the inferior pole of the left lobe of the thyroid gland there is a nodule measuring about 8.0 x 6.0 x 5.0 mm. It is heterogeneous and mildly hypoechoic. I do not clearly identify it on the prior examination. IMPRESSION 1. Two large nodules are identified within the right lobe of the thyroid gland and more superiorly located mixed solid and cystic nodule has increased in size when compared to the prior examination. The more inferior nodule which is predominantly solid has remained stable in size when compared to October 2014. Both of these meet size criteria for percutaneous sampling and this is recommended if not previously performed. 2. This patient does have a mildly hypoechoic heterogeneous nodule within the inferior pole of the left lobe of the thyroid gland measuring up to 8.0 x 6.0 x 5.0 mm which I do not clearly identify on prior studies, however, at this point it does not meet size criteria for percutaneous sampling. Short-term sonographic followup in 6 months is suggested. Dictated by... Ericka Beauchamp M.D. THIS IS AN ELECTRONICALLY VERIFIED REPORT Ericka Beauchamp M.D. at 02/01/2017 5:34 PM THOMAS/chitra TD: 02/01/2017 09:59 JOB #: [id number] MEDICAL IMAGING REPORT Page 1 of 1 COPY
== END | disposition home or self-care (01) ==
LOC: CWCC 09:41
DX: R22.1 Localized swelling, mass and lump, neck (principal); E04.1 Nontoxic single thyroid nodule
CPT/HCPCS: 76536

== ENCOUNTER → 2017-02-21 | Outpatient (CLI) | payer MEDICARE, OTHER | END | disposition home or self-care (01) | LOC: CLAB 11:42 | DX: E04.1 Nontoxic single thyroid nodule (principal) | CPT/HCPCS: 36415; 84443 ==